=== PATIENT | female | born 1990 | race Caucasian/White ===

== ENCOUNTER 2018-06-24 08:48 | Emergency (ER) | payer BC ==
[2018-06-24] MEDS ORDERED: Alum Hydrox/Mag Hydrox/Simeth 30 ML, Lidocaine 2% 15 ML PO ONE ×2 (09:26)
--- NOTE | 2018-06-24 09:28 | EDM.PDOC ---
ED HPI GENERAL MEDICAL PROBLEM - General Chief Complaint: Abdominal Pain Stated Complaint: ABD PAIN Time Seen by Provider: 06/24/18 09:05 - History of Present Illness INITIAL COMMENTS - FREE TEXT/NARRATIVE: 28-year-old female presents emergency room with abdominal pain. This pain started in April. She was in the clinic at lab work done that she reports is unremarkable she had a CT done that was noncontributory on May 21. At this time she describes the pain is worse in the left upper quadrant but is present in the entire abdominal area. She has a history of endometriosis. She is not on any therapy for endometriosis. Every time she tries to eat or drink she developed some vomiting. Apparently she has an appointment with Dr. Hurtado on the of this month. Denies fevers or chills. The pain often wakes her up at night and sometimes associated with a burning sensation in her middle upper abdomen. 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, 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: hx of c-sections Psychiatric History: Reports: Depression Other Psychiatric History: depression 5-6years ago with suicide attempt - Past Surgical History GI Surgical History: Reports: Appendectomy Female Surgical History: Reports: Section Social & Family History - Tobacco Use Smoking Status *Q: Current Every Day Smoker Years of Tobacco use: 2 Packs/Tins Daily: 0.2 Second Hand Smoke Exposure: No - Caffeine Use Caffeine Use: Reports: Coffee - Alcohol Use Days Per Week of Alcohol Use: 2 Number of Drinks Per Day: 1 Total Drinks Per Week: 2 - Recreational Drug Use Recreational Drug Use: No ED ROS GENERAL - Review of Systems Review Of Systems: See Below Constitutional: Reports: No Symptoms HEENT: Reports: No Symptoms Respiratory: Reports: No Symptoms Cardiovascular: Reports: No Symptoms Endocrine: Reports: No Symptoms GI/Abdominal: Reports: Abdominal Pain, Nausea, Vomiting. Denies: Constipation, Diarrhea : Reports: No Symptoms Musculoskeletal: Reports: No Symptoms Skin: Reports: No Symptoms Neurological: Reports: No Symptoms ED EXAM, GI/ABD - Physical Exam Exam: See Below Exam Limited By: No Limitations General Appearance: Alert, No Apparent Distress Head: Atraumatic, Normocephalic Neck: Normal Inspection, Supple, Non-Tender, Full Range of Motion Respiratory/Chest: No Respiratory Distress, Lungs Clear, Normal Breath Sounds Cardiovascular: Regular Rate, Rhythm, No Edema, No Murmur GI/Abdominal Exam: Normal Bowel Sounds, Soft, Other (She has tenderness all over worse left upper quadrant left lower quadrant). No: Guarding, Rigid, Rebound Back Exam: Normal Inspection. No: CVA Tenderness (L), CVA Tenderness (R) Extremities: Normal Inspection, No Pedal Edema Neurological: Alert, Oriented, Normal Cognition Psychiatric: Anxious Skin Exam: Warm, Dry, Intact Course - Vital Signs Last Recorded V/S: Last Vital Signs Temp 36.3 C 06/24/18 09:00 Pulse 80 06/24/18 09:00 Resp 16 06/24/18 09:00 BP 108/68 06/24/18 09:00 Pulse Ox 100 06/24/18 09:00 - Orders/Labs/Meds Labs: Laboratory Tests 06/24/18 06/24/18 06/24/18 Range/Units 09:35 09:40 09:40 WBC 7.76 (3.98-10.04) K/mm3 RBC 4.66 (3.98-5.22) M/mm3 Hgb 15.2 (11.2-15.7) gm/L Hct 45.2 H (34.1-44.9) % MCV 97.0 H (79.4-94.8) fl MCH 32.6 H (25.6-32.2) pg MCHC 33.6 (32.2-35.5) g/dl RDW Std Deviation 49.7 H (36.4-46.3) fL Plt Count 305 (182-369) K/mm3 MPV 9.8 (9.4-12.3) fl Neutrophils % (Manual) 54 (40-60) % Band Neutrophils % 0 (0-10) % Lymphocytes % (Manual) 37 (20-40) % Atypical Lymphs % 0 % Monocytes % (Manual) 7 (2-10) % Eosinophils % (Manual) 2 (0.7-5.8) % Basophils % (Manual) 0 L (0.1-1.2) Platelet Estimate Adequate RBC Morph Comment Normal Sodium 142 (136-145) mEq/L Potassium 4.1 (3.5-5.1) mEq/L Chloride 106 (98-107) mEq/L Carbon Dioxide 27 (21-32) mEq/L Anion Gap 13.1 (5-15) BUN 12 (7-18) mg/dL Creatinine 0.8 (0.55-1.02) mg/dL Est Cr Clr Drug Dosing 92.53 mL/min Estimated GFR (MDRD) > 60 (>60) mL/min BUN/Creatinine Ratio 15.0 (14-18) Glucose 95 (74-106) mg/dL Calcium 9.4 (8.5-10.1) mg/dL Total Bilirubin 0.3 (0.2-1.0) mg/dL AST 12 L (15-37) U/L ALT 20 (14-59) U/L Alkaline Phosphatase 89 (46-116) U/L C-Reactive Protein < 0.2 (<1.0) mg/dL Total Protein 7.8 (6.4-8.2) g/dl Albumin 4.2 (3.4-5.0) g/dl Globulin 3.6 gm/dL Albumin/Globulin Ratio 1.2 (1-2) Lipase 123 (73-393) U/L Urine Color Yellow (Yellow) Urine Appearance Clear (Clear) Urine pH 7.0 (5.0-8.0) Ur Specific [place] 1.015 (1.005-1.030) Urine Protein Negative (Negative) Urine Glucose (UA) Negative (Negative) Urine Ketones Negative (Negative) Urine Occult Blood Negative (Negative) Urine Nitrite Negative (Negative) Urine Bilirubin Negative (Negative) Urine Urobilinogen 0.2 (0.2-1.0) Ur Leukocyte Esterase Negative (Negative) Urine RBC 0-5 (0-5) /hpf Urine WBC 0-5 (0-5) /hpf Ur Epithelial Cells 0-5 (0-5) /hpf Urine Bacteria Not seen (FEW) /hpf Urine Mucus Not seen (FEW) /hpf Urine HCG, Qual (NEGATIVE) 06/24/18 Range/Units Unknown WBC (3.98-10.04) K/mm3 RBC (3.98-5.22) M/mm3 Hgb (11.2-15.7) gm/L Hct (34.1-44.9) % MCV (79.4-94.8) fl MCH (25.6-32.2) pg MCHC (32.2-35.5) g/dl RDW Std Deviation (36.4-46.3) fL Plt Count (182-369) K/mm3 MPV (9.4-12.3) fl Neutrophils % (Manual) (40-60) % Band Neutrophils % (0-10) % Lymphocytes % (Manual) (20-40) % Atypical Lymphs % % Monocytes % (Manual) (2-10) % Eosinophils % (Manual) (0.7-5.8) % Basophils % (Manual) (0.1-1.2) Platelet Estimate RBC Morph Comment Sodium (136-145) mEq/L Potassium (3.5-5.1) mEq/L Chloride (98-107) mEq/L Carbon Dioxide (21-32) mEq/L Anion Gap (5-15) BUN (7-18) mg/dL Creatinine (0.55-1.02) mg/dL Est Cr Clr Drug Dosing mL/min Estimated GFR (MDRD) (>60) mL/min BUN/Creatinine Ratio (14-18) Glucose (74-106) mg/dL Calcium (8.5-10.1) mg/dL Total Bilirubin (0.2-1.0) mg/dL AST (15-37) U/L ALT (14-59) U/L Alkaline Phosphatase (46-116) U/L C-Reactive Protein (<1.0) mg/dL Total Protein (6.4-8.2) g/dl Albumin (3.4-5.0) g/dl Globulin gm/dL Albumin/Globulin Ratio (1-2) Lipase (73-393) U/L Urine Color (Yellow) Urine Appearance (Clear) Urine pH (5.0-8.0) Ur Specific [place] (1.005-1.030) Urine Protein (Negative) Urine Glucose (UA) (Negative) Urine Ketones (Negative) Urine Occult Blood (Negative) Urine Nitrite (Negative) Urine Bilirubin (Negative) Urine Urobilinogen (0.2-1.0) Ur Leukocyte Esterase (Negative) Urine RBC (0-5) /hpf Urine WBC (0-5) /hpf Ur Epithelial Cells (0-5) /hpf Urine Bacteria (FEW) /hpf Urine Mucus (FEW) /hpf Urine HCG, Qual Negative (NEGATIVE) Meds: Medications Discontinued Medications Generic Name Dose Route Start Last Admin Trade Name Freq PRN Reason Stop Dose Admin Al Hydroxide/Mg Hydroxide 30 0 ml 06/24/18 09:26 06/24/18 09:34 ml/ Lidocaine HCl 15 ml PO 06/24/18 09:27 45 ml ONETIME ONE Administration Lactated Ringer's 1,000 mls @ 999 mls/hr 06/24/18 09:32 06/24/18 09:51 Ringers, Lactated IV 06/24/18 10:32 999 mls/hr .BOLUS ONE Administration Ondansetron HCl 4 mg 06/24/18 09:32 06/24/18 09:49 Zofran IVPUSH 06/24/18 09:33 4 mg ONETIME ONE Administration - Re-Assessments/Exams Free Text/Narrative Re-Assessment/Exam: 06/24/18 09:25 Old records reviewed labs from May 17 unrevealing except for a C-reactive protein of 1.9 CT examination done on 05-26 show no acute abdominal pathology no suggestion of what is causing her discomfort. 06/24/18 12:02 Labs nondiagnostic. At this point the patient declines any opioid treatment she' ll continue with the Tylenol and Motrin. I did discuss her case with Dr. Hurtado who will see her next week in the clinic 10:00 in the morning on the . We did discuss checking another CT patient does not want to do this at this time which I think is reasonable. Did offer gallbladder ultrasound she like to hold off that she really believes this is her endometriosis acting up. Patient was given a GI cocktail here but did not seem to help. Departure - Departure Time of Disposition: 12:03 Disposition: Home, Self-Care 01 Clinical Impression: Abdominal pain of unknown etiology, History of endometriosis - Discharge Information Referrals: Angela Garcia MD [Primary Care Provider] - Forms: ED Department Discharge Additional Instructions: Return to the emergency room with any questions problems worsening symptoms. Continue using the Tylenol and Motrin as needed for discomfort. Push lots of fluids. Follow-up with Dr. Hurtado this coming at 10:00 in the morning.
[2018-06-24] MEDS ORDERED: Lactated Ringers 1,000 ML IV ONE (09:32)
[2018-06-24] MEDS ORDERED: Ondansetron 4 MG/2 ML SDV IVPUSH ONE (09:32)
[2018-06-24 12:22] VITALS: BP 115/73
== END 2018-06-24 12:20 | disposition home or self-care (01) ==
LOC: JD.ED 08:48
DX: N80.9 Endometriosis, unspecified (principal); F17.210 Nicotine dependence, cigarettes, uncomplicated; Z88.0 Allergy status to penicillin; Z88.2 Allergy status to sulfonamides
CPT/HCPCS: 36415; 80053; 81001; 81025; 83690; 85007; 85027; 86140; 96361; 96374; 99284; A9270; J2405; J7120

== ENCOUNTER 2018-07-22 07:01 | Inpatient (IN) | payer BC ==
[~2018-07-22 07:01] MED LIST: Lidocaine 1%/Sod Bicarbonate in NS 8.4% 1 ML Syringe IDERM PRN; Sodium Chloride 0.9% 10 ML Syringe FLUSH PRN
[2018-07-22] MEDS ORDERED: Bupivacaine 0.5% 30 ML SDV ONE (07:07)
[2018-07-22] MEDS ORDERED: Propofol 200 MG/20 ML SDV ONE (07:28)
[2018-07-22] MEDS ORDERED: fentaNYL 250 MCG/5 ML SDV ONE (07:28)
[2018-07-22] MEDS ORDERED: Midazolam 1 MG/ML 2 ML SDV ONE (07:28)
[2018-07-22] MEDS ORDERED: Rocuronium 50 MG/5 ML Vial ONE (07:28)
[2018-07-22] MEDS ORDERED: Gentamicin 350 MG in Dextrose 5% in Water 100 ML IV ONE ×2 (07:30)
[2018-07-22] MEDS: Lactated Ringers 1,000 ML IV SCH ×2 (07:35→10:38)
--- NOTE | 2018-07-22 07:47 | PCM.PREANE ---
Preanesthetic Assessment - Procedure Proposed Procedure: JOHN with BS - Anesthesia/Transfusion/Family Hx Anesthesia History: Prior Anesthesia Without Reaction Family History of Anesthesia Reaction: No Transfusion History: No Prior Transfusion(s) Intubation History: History of Difficulty Intubation - Review of Systems General: No Symptoms Pulmonary: Wheezing, Other (history last night of wheezing due to cold. has inhaler with ) Cardiovascular: No Symptoms Gastrointestinal: No Symptoms Neurological: No Symptoms Other: Reports: Depression, Anxiety - Physical Assessment NPO Status Date: 07/22/18 NPO Status Time: 22:00 Pulse: 72 O2 Sat by Pulse Oximetry: 100 Respiratory Rate: 16 Blood Pressure: 105/73 Temperature: 36.6 C Height: 1.65 m Weight: 69.598 kg ASA Class: 2 Mental Status: Alert & Oriented x3 Airway Class: Mallampati = 2 Dentition: Reports: Missing Tooth/Teeth (left lower ) Thyro-Mental Finger Breadths: 3 Mouth Opening Finger Breadths: 5 Lungs: Clear to Auscultation, Normal Respiratory Effort Cardiovascular: Regular Rate, Regular Rhythm - Lab Values: Laboratory Last Values WBC 6.16 K/mm3 (3.98-10.04) 07/21/18 08:38 RBC 4.43 M/mm3 (3.98-5.22) 07/21/18 08:38 Hgb 14.4 gm/L (11.2-15.7) 07/21/18 08:38 Hct 43.6 % (34.1-44.9) 07/21/18 08:38 MCV 98.4 fl (79.4-94.8) H 07/21/18 08:38 MCH 32.5 pg (25.6-32.2) H 07/21/18 08:38 MCHC 33.0 g/dl (32.2-35.5) 07/21/18 08:38 RDW Std Deviation 51.1 fL (36.4-46.3) H 07/21/18 08:38 Plt Count 296 K/mm3 (182-369) 07/21/18 08:38 MPV 9.8 fl (9.4-12.3) 07/21/18 08:38 Neut % (Auto) 60.6 % (34.0-71.1) 07/21/18 08:38 Lymph % (Auto) 25.8 % (19.3-51.7) 07/21/18 08:38 [place] % (Auto) 7.3 % (4.7-12.5) 07/21/18 08:38 Eos % (Auto) 5.0 (0.7-5.8) 07/21/18 08:38 Baso % (Auto) 1.3 % (0.1-1.2) H 07/21/18 08:38 Neut # (Auto) 3.73 K/mm3 (1.56-6.13) 07/21/18 08:38 Lymph # (Auto) 1.59 K/mm3 (1.18-3.74) 07/21/18 08:38 [place] # (Auto) 0.45 K/mm3 (0.24-0.36) H 07/21/18 08:38 Eos # (Auto) 0.31 K/mm3 (0.04-0.36) 07/21/18 08:38 Baso # (Auto) 0.08 K/mm3 (0.01-0.08) 07/21/18 08:38 Creatinine 0.8 mg/dL (0.55-1.02) 07/21/18 08:38 Est Cr Clr Drug Dosing TNP 07/21/18 08:38 Estimated GFR (MDRD) > 60 mL/min (>60) 07/21/18 08:38 Urine Color Yellow (Yellow) 07/21/18 08:38 Urine Appearance Clear (Clear) 07/21/18 08:38 Urine pH 7.0 (5.0-8.0) 07/21/18 08:38 Ur Specific [place] 1.010 (1.005-1.030) 07/21/18 08:38 Urine Protein Negative (Negative) 07/21/18 08:38 Urine Glucose (UA) Negative (Negative) 07/21/18 08:38 Urine Ketones Negative (Negative) 07/21/18 08:38 Urine Occult Blood Negative (Negative) 07/21/18 08:38 Urine Nitrite Negative (Negative) 07/21/18 08:38 Urine Bilirubin Negative (Negative) 07/21/18 08:38 Urine Urobilinogen 0.2 (0.2-1.0) 07/21/18 08:38 Ur Leukocyte Esterase Negative (Negative) 07/21/18 08:38 Urine HCG, Qual Negative (NEGATIVE) 07/21/18 08:38 Blood Type O POSITIVE 07/21/18 08:38 Gel Antibody Screen Negative 07/21/18 08:38 - Allergies Allergies/Adverse Reactions: Allergies Allergy/AdvReac Type Severity Reaction Status Date / Time cephalexin [Cephalexin] Allergy Hives Verified 07/21/18 12:20 Penicillins Allergy Hives Verified 07/21/18 12:20 Sulfa (Sulfonamide Allergy Hives Verified 07/21/18 12:20 Antibiotics) - Blood Blood Available: Yes - Anesthesia Plan Pre-Op Medication Ordered: None - Acknowledgements Anesthesia Type Planned: General Anesthesia Pt an Appropriate Candidate for the Planned Anesthesia: Yes Alternatives and Risks of Anesthesia Discussed w Pt/Guardian: Yes Pt/Guardian Understands and Agrees with Anesthesia Plan: Yes PreAnesthesia Questionnaire HEENT History: Reports: Impaired Vision Other HEENT History: wears eyeglasses Cardiovascular History: Reports: None Respiratory History: Reports: None Gastrointestinal History: Reports: Chronic Diarrhea Genitourinary History: Reports: UTI, 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, Para: 3 Other OB/BYN History: menorrhagia, dysmenorrhea, pelvic pain, yeast vaginitis, dyspareunia Musculoskeletal History: Reports: None Neurological History: Reports: None Psychiatric History: Reports: Anxiety, Depression Other Psychiatric History: depression 5-6years ago with suicide attempt Endocrine/Metabolic History: Reports: None Hematologic History: Reports: None Immunologic History: Reports: None Oncologic (Cancer) History: Reports: None Dermatologic History: Reports: None - Past Surgical History Head Surgeries/Procedures: Reports: None HEENT Surgical History: Reports: None Cardiovascular Surgical History: Reports: None Respiratory Surgical History: Reports: None GI Surgical History: Reports: Appendectomy Female Surgical History: Reports: Section Endocrine Surgical History: Reports: None Neurological Surgical History: Reports: None Musculoskeletal Surgical History: Reports: None Oncologic Surgical History: Reports: None Dermatological Surgical History: Reports: None - SUBSTANCE USE Smoking Status *Q: Former Smoker Recreational Drug Use History: No - HOME MEDS Home Medications: Home Meds Acetaminophen [Tylenol] 650 mg PO Q6H PRN #50 tablet 11/08/14 [Rx] Multivitamin [Multivitamins] 1 tab PO DAILY 06/24/18 [History] Albuterol Sulfate [Albuterol Sulfate Hfa] 1 - 2 puff INH Q4H PRN 07/21/18 [ History] - CURRENT (IN HOUSE) MEDS Current Meds: Current Medications Lactated Ringer's (Ringers, Lactated) 1,000 mls @ 125 mls/hr IV ASDIRECTED DELANEY Stop: 07/22/18 23:00 Clindamycin Phosphate 900 mg/ (Premix) 50 mls @ 100 mls/hr IV ONETIME ONE Stop: 07/22/18 08:29 Gentamicin Sulfate 350 mg/ (Dextrose/Water) 108.75 mls @ 200 mls/hr IV ONETIME ONE Stop: 07/22/18 08:02 Lidocaine/Sodium Bicarbonate (Buffered Lidocaine 1% In Ns 8.4%) 0.25 ml IDERM ONETIME PRN PRN Reason: Prior to IV Start Stop: 07/22/18 18:00 Sodium Chloride (Saline Flush) 10 ml FLUSH ASDIRECTED PRN PRN Reason: Keep Vein Open Stop: 07/22/18 18:00 Discontinued Medications Bupivacaine HCl (Marcaine 0.5%) Confirm Administered Dose 30 ml .ROUTE .STK-MED ONE Stop: 07/22/18 07:08 Fentanyl (Sublimaze) Confirm Administered Dose 250 mcg .ROUTE .STK-MED ONE Stop: 07/22/18 07:29 Gentamicin Sulfate (Gentamicin) 0 mg IV .Pharmacy to Dose [facility] Midazolam HCl (Versed 1 Mg/Ml) Confirm Administered Dose 2 mg .ROUTE .STK-MED ONE Stop: 07/22/18 07:29 Propofol (Diprivan 20 Ml) Confirm Administered Dose 600 mg .ROUTE .STK-MED ONE Stop: 07/22/18 07:29 Rocuronium [place] (Zemuron) Confirm Administered Dose 50 mg .ROUTE .STK-MED ONE Stop: 07/22/18 07:29
[2018-07-22] MEDS ORDERED: Gentamicin 40 MG/ML 2 ML Vial IV SCH (08:00)
[2018-07-22] MEDS ORDERED: Clindamycin Phosphate in D5W 900 MG in Premix Bag 1 BAG IV ONE ×2 (08:00)
[2018-07-22] MEDS ORDERED: Lidocaine 1% 2 ML ONE (08:05)
[2018-07-22] MEDS ORDERED: Ketamine 500 mg/10 ML MDV ONE (08:40)
[2018-07-22] MEDS ORDERED: HYDROmorphone 0.5 MG/0.5 ML Syringe ONE ×2 (08:41→08:50)
[2018-07-22] MEDS ORDERED: Lactated Ringers 1,000 ML ONE (09:03)
[2018-07-22] MEDS ORDERED: Neostigmine Methylsulfate 1 MG/ML 5 ML Syringe ONE (09:15)
[2018-07-22] MEDS ORDERED: Ketorolac 30 MG/ML SDV ONE (09:25)
--- NOTE | 2018-07-22 10:13 | PCM.OPNOTE ---
- General Post-Op/Procedure Note Date of Surgery/Procedure: 07/22/18 Operative Procedure(s): Total abdominal hysterectomy with bilateral salpingectomy, repair of bladder laceration Findings: Entered abdominal wall was found to be with moderate adhesions secondary to previous surgery. The uterus was normal size flow to his room unremarkable as were ovaries. Posterior cul-de-sac was unremarkable. Anterior cul-de-sac showed moderate to significant scarring in the area of the bladder onto the uterus. Ovaries were left in place per patient desire. Inadvertent entry into the bladder on the left side of the uterus in an area of dense adhesions. This was approximately 1 cm in length. Pre Op Diagnosis: 1. Menorrhagia. 2. Dysmenorrhea. 3. Dyspareunia Post-Op Diagnosis: 1. Menorrhagia. 2. Dysmenorrhea. 3. Dyspareunia. 4. Inadvertent entry into the bladder Anesthesia Technique: General ET Tube, Local Other Anesthesia Type: Marcaine 0.5%20 mL local Primary Surgeon: James Hurtado Secondary Surgeon: Yasmine Guy Anesthesia Provider: Loretta Rain Role of Agricultural Engineering Technician: Assistance, retraction, patient safety, quality of care Pathology: Uterus with bilateral fallopian tubes Fluid Replacement, Intraop: 1,800 Output, Urine Amount: 50 EBL in mLs: 400 Drain/Tube Comments:: Indwelling bladder catheter Complications: None Condition: Good Free Text/Narrative:: Surgery duration: 76 minutes procedure: After adequate consent was obtained, the patient was taken to the operating room. She was given 2 g of Ancef IV for infection prophylaxis. She had sequential compression stockings placed for DVT prophylaxis. She is administered general endotracheal anesthesia. After adequate administration of anesthesia patient was placed in a frog-leg position and was prepped vaginally and abdominally in the routine fashion. Mac catheter was placed. Patient's abdomen was then opened through her old Pfannenstiel skin incision scar. Entrance was made through the old Pfannenstiel incision scar. The incision was carried down through skin, subcutaneous and fascial layers. Severe and dense adhesions/scar tissue were apparent. Abdominal cavity was entered without problems. An Neville self-retaining retractor was placed. The uterus was elevated with a double-tooth tenaculum at the fundus. Using a Enseal vessel closure device the fallopian tube mesosalpinx was taken down on the patient's left side. Ovaries were conserved per patient desire. The ovarian ligament, round ligament, broad ligament were then taken down in a routine stepwise fashion using the Enseal system. Done on the right side. The cardinal ligaments and taken down on each side to the level of the to the cervix. The angles of the vagina were then crossclamped using Vince clamps 2 these pedicles were cut and were suture ligated with Vince stitch of #1 Vicryl. A [id number] suture was then placed in the mid incision to complete the closure. Hemostasis was confirmed at this time. Inadvertant entry into the bladder occurred with dissection of the bladder flap. After hysterectomy was done edges were identified and sutured with 3-0 Vicryl. Imbricating layer was then used using the same. Sterile milk was used to test the bladder and the laceration site appeared intact and secure. Stasis was confirmed at this time. The pelvis was irrigated with fluid aspirated. The one sponge been placed was removed. The abdominal was then closed. The fascia was closed with a running suture of #1 PDS from angle to angle. The subcutaneous area was closed with 2 layers of Monocryl suture first an interrupted layer and second a running layer reapproximating the skin edges closer to allow for better subcuticular suture closure. Subcuticular closure was then undertaken using 3-0 Monocryl suture on the Jordan needle. The incision was further asked made with Prineo mesh. The patient was awakened from general endotracheal anesthesia and was discharged from the operating room in good condition.
--- NOTE | 2018-07-22 10:13 | PCM.POSTAN ---
POST ANESTHESIA ASSESSMENT - MENTAL STATUS Mental Status: Disoriented - VITAL SIGNS Pulse Rate: 91 SaO2: 97 Resp Rate: 22 Blood Pressure: 105/65 Temperature: 36.2 C - RESPIRATORY Respiratory Status: Respiratory Rate WNL, Airway Patent, O2 Saturation Stable - CARDIOVASCULAR CV Status: Pulse Rate WNL, Blood Pressure Stable - GASTROINTESTINAL GI Status: No Symptoms - PAIN Pain Score: 0 - POST OP HYDRATION Hydration Status: Adequate & Stable
[2018-07-22] MEDS ORDERED: diphenhydrAMINE 50 MG/ML SDV IVPUSH PRN (10:15)
[2018-07-22] MEDS ORDERED: fentaNYL 100 MCG/2 ML SDV IVPUSH PRN (10:15)
[2018-07-22] MEDS ORDERED: Ondansetron 4 MG/2 ML SDV IVPUSH PRN ×2 (10:15→11:38)
[2018-07-22] MEDS: HYDROmorphone 0.5 MG/0.5 ML Syringe IVPUSH PRN ×2 (10:35→11:08)
[2018-07-22] MEDS ORDERED: HYDROmorphone 0.5 MG/0.5 ML Syringe IVPUSH PRN (11:38)
[2018-07-22] MEDS ORDERED: Lactated Ringers 1,000 ML IV SCH (11:38)
[2018-07-22] MEDS ORDERED: Promethazine 25 MG/ML SDV IM ONE (12:20)
[2018-07-22] MEDS ORDERED: Morphine 10 MG/ML SDV IM ONE (12:20)
[2018-07-22] MEDS: Phenazopyridine 95 MG Tab PO SCH ×2 (12:46→19:13)
[2018-07-22] MEDS: Acetaminophen/oxyCODONE 325-5 MG Tab PO PRN ×2 (16:03→20:16)
[2018-07-22] MEDS: Ibuprofen 600 MG Tab PO PRN ×2 (17:39→23:48)
[2018-07-22] MEDS: Docusate Sodium 100 MG Cap PO SCH (20:16)
--- NOTE | 2018-07-22 23:30 | PCM48HPAN ---
Post Anesthesia Note - EVALUATION WITHIN 48HRS OF ANESTHETIC Vital Signs in Normal Range: Yes Patient Participated in Evaluation: Yes Respiratory Function Stable: Yes Airway Patent: Yes Cardiovascular Function Stable: Yes Hydration Status Stable: Yes Pain Control Satisfactory: Yes Nausea and Vomiting Control Satisfactory: Yes Mental Status Recovered: Yes Pulse Rate: 80 Resp Rate: 14 Temperature: 36.7 C Blood Pressure: 111/74 - COMMENTS/OBSERVATIONS Free Text/Narrative:: RN states no issues of concern post anesthesia.
[2018-07-23] MEDS: Acetaminophen/oxyCODONE 325-5 MG Tab PO PRN ×3 (00:16→08:40)
[2018-07-23] MEDS: Ibuprofen 600 MG Tab PO PRN ×2 (05:49→13:06)
--- NOTE | 2018-07-23 07:28 | PCM.SURGPN ---
- General Info Date of Service: 07/23/18 POD#: 1 Functional Status: Reports: Pain Controlled, Tolerating Diet, Ambulating - Review of Systems General: Reports: No Symptoms Pulmonary: Reports: No Symptoms Cardiovascular: Reports: No Symptoms Gastrointestinal: Reports: Abdominal Pain (mostly located in incision ) Genitourinary: Reports: Other (slight discomfort with catheter in place ) Musculoskeletal: Reports: No Symptoms Neurological: Reports: No Symptoms - Patient Data Vitals - Most Recent: Last Vital Signs Temp 36.7 C 07/23/18 03:59 Pulse 74 07/23/18 03:59 Resp 14 07/23/18 03:59 BP 94/65 07/23/18 03:59 Pulse Ox 98 07/23/18 03:59 Weight - Most Recent: 69.598 kg I&O - Last 24 Hours: Intake & Output 07/22/18 07/23/18 07/23/18 22:59 06:59 14:59 Output Total 1425 500 Balance -1425 -500 Lab Results Last 24 Hrs: Laboratory Results - last 24 hr 07/23/18 Range/Units 05:45 WBC 12.41 H (3.98-10.04) K/mm3 RBC 3.57 L (3.98-5.22) M/mm3 Hgb 11.9 (11.2-15.7) gm/L Hct 35.6 (34.1-44.9) % MCV 99.7 H (79.4-94.8) fl MCH 33.3 H (25.6-32.2) pg MCHC 33.4 (32.2-35.5) g/dl RDW Std Deviation 50.8 H (36.4-46.3) fL Plt Count 261 (182-369) K/mm3 MPV 10.3 (9.4-12.3) fl Neut % (Auto) 71.9 H (34.0-71.1) % Lymph % (Auto) 20.7 (19.3-51.7) % [place] % (Auto) 6.8 (4.7-12.5) % Eos % (Auto) 0.2 L (0.7-5.8) Baso % (Auto) 0.2 (0.1-1.2) % Neut # (Auto) 8.90 H (1.56-6.13) K/mm3 Lymph # (Auto) 2.57 (1.18-3.74) K/mm3 [place] # (Auto) 0.85 H (0.24-0.36) K/mm3 Eos # (Auto) 0.03 L (0.04-0.36) K/mm3 Baso # (Auto) 0.03 (0.01-0.08) K/mm3 Med Orders - Current: Current Medications Docusate Sodium (Colace) 100 mg PO BID [facility] Last Admin: 07/22/18 20:16 Dose: 100 mg Hydromorphone HCl (Dilaudid) 0.2 mg IVPUSH Q2H PRN PRN Reason: Pain (severe 7-10) Lactated Ringer's (Ringers, Lactated) 1,000 mls @ 125 mls/hr IV ASDIRECTED [facility] Last Admin: 07/22/18 17:38 Dose: 125 mls/hr Ibuprofen (Motrin) 600 mg PO Q6H PRN PRN Reason: Pain (mild 1-3) Last Admin: 07/23/18 05:49 Dose: 600 mg Ondansetron HCl (Zofran) 4 mg IVPUSH Q4H PRN PRN Reason: Nausea/Vomiting Oxycodone/Acetaminophen (Percocet 325-5 Mg) 2 tab PO Q4H PRN PRN Reason: Pain (moderate 4-6) Last Admin: 07/23/18 04:21 Dose: 2 tab Phenazopyridine HCl (Urinary Pain Relief) 95 mg PO TIDPC [facility] Last Admin: 07/22/18 19:13 Dose: 95 mg Discontinued Medications Bupivacaine HCl (Marcaine 0.5%) Confirm Administered Dose 30 ml .ROUTE .STK-MED ONE Stop: 07/22/18 07:08 Last Admin: 07/22/18 08:25 Dose: 20 ml Diphenhydramine HCl (Benadryl) 12.5 mg IVPUSH Q6H PRN PRN Reason: pruritis Stop: 07/22/18 13:00 Fentanyl (Sublimaze) Confirm Administered Dose 250 mcg .ROUTE .STK-MED ONE Stop: 07/22/18 07:29 Fentanyl (Sublimaze) 50 mcg IVPUSH Q5M PRN PRN Reason: Pain Stop: 07/22/18 13:00 Gentamicin Sulfate (Gentamicin) 0 mg IV .Pharmacy to Dose [facility] Glycopyrrolate () Confirm Administered Dose 1 mg .ROUTE .STK-MED ONE Stop: 07/22/18 09:16 Hydromorphone HCl (Dilaudid) Confirm Administered Dose 0.5 mg .ROUTE .STK-MED ONE Stop: 07/22/18 08:42 Hydromorphone HCl (Dilaudid) Confirm Administered Dose 0.5 mg .ROUTE .STK-MED ONE Stop: 07/22/18 08:51 Hydromorphone HCl (Dilaudid) 0.5 mg IVPUSH Q1H PRN PRN Reason: Abdominal Pain Stop: 07/22/18 13:00 Last Admin: 07/22/18 11:08 Dose: 0.5 mg Lactated Ringer's (Ringers, Lactated) 1,000 mls @ 125 mls/hr IV ASDIRECTED [facility] Stop: 07/22/18 23:00 Last Admin: 07/22/18 10:38 Dose: 125 mls/hr Clindamycin Phosphate 900 mg/ (Premix) 50 mls @ 100 mls/hr IV ONETIME ONE Stop: 07/22/18 08:29 Last Admin: 07/22/18 07:55 Dose: 100 mls/hr Gentamicin Sulfate 350 mg/ (Dextrose/Water) 108.75 mls @ 200 mls/hr IV ONETIME ONE Stop: 07/22/18 08:02 Last Admin: 07/22/18 10:00 Dose: Not Given Lidocaine HCl (Xylocaine-Mpf 1%) Confirm Administered Dose 2 mls @ as directed .ROUTE .STK-MED ONE Stop: 07/22/18 08:06 Lactated Ringer's (Ringers, Lactated) Confirm Administered Dose 1,000 mls @ as directed .ROUTE .STK-MED ONE Stop: 07/22/18 09:04 Ketamine HCl (Ketalar) Confirm Administered Dose 500 mg .ROUTE .STK-MED ONE Stop: 07/22/18 08:41 Ketorolac Tromethamine (Toradol) Confirm Administered Dose 30 mg .ROUTE .STK- MED ONE Stop: 07/22/18 09:26 Lidocaine/Sodium Bicarbonate (Buffered Lidocaine 1% In Ns 8.4%) 0.25 ml IDERM ONETIME PRN PRN Reason: Prior to IV Start Stop: 07/22/18 18:00 Last Admin: 07/22/18 07:35 Dose: 0.25 ml Midazolam HCl (Versed 1 Mg/Ml) Confirm Administered Dose 2 mg .ROUTE .STK-MED ONE Stop: 07/22/18 07:29 Morphine Sulfate (Morphine) 10 mg IM ONETIME ONE Stop: 07/22/18 12:21 Last Admin: 07/22/18 12:47 Dose: 10 mg Neostigmine Methylsulfate (Neostigmine) Confirm Administered Dose 5 mg .ROUTE .STK-MED ONE Stop: 07/22/18 09:16 Ondansetron HCl (Zofran) 4 mg IVPUSH ONETIME PRN PRN Reason: Nausea/Vomiting Stop: 07/22/18 11:30 Promethazine HCl (Phenergan) 25 mg IM ONETIME ONE Stop: 07/22/18 12:21 Last Admin: 07/22/18 12:47 Dose: 25 mg Propofol (Diprivan 20 Ml) Confirm Administered Dose 600 mg .ROUTE .STK-MED ONE Stop: 07/22/18 07:29 Rocuronium [place] (Zemuron) Confirm Administered Dose 50 mg .ROUTE .STK-MED ONE Stop: 07/22/18 07:29 Sodium Chloride (Saline Flush) 10 ml FLUSH ASDIRECTED PRN PRN Reason: Keep Vein Open Stop: 07/22/18 18:00 - Exam Wound/Incisions: Healing Well, No Drainage General: Alert, Oriented, Cooperative Lungs: Clear to Auscultation, Normal Respiratory Effort Cardiovascular: Regular Rate, Regular Rhythm GI/Abdominal Exam: Soft, Tender (appropriate post op ) Extremities: Normal Inspection Skin: Warm, Dry, Intact Physical Findings Comment:: Catheter in place draining large amounts of orange tinged urine (patient using pyridium) - Problem List & Annotations (1) Dysmenorrhea SNOMED Code(s): 144776472 Code(s): N94.6 - DYSMENORRHEA, UNSPECIFIED Status: Acute Current Visit: Yes (2) S/P JOHN (total abdominal hysterectomy) SNOMED Code(s): 283606227, 209196331, 357489499, 350192441 Code(s): Z90.710 - ACQUIRED ABSENCE OF BOTH CERVIX AND UTERUS Status: Acute Current Visit: Yes - Problem List Review Problem List Initiated/Reviewed/Updated: Yes - My Orders Last 24 Hours: Active Orders 24 hr Category Date Time Status Ambulate [RC] ASDIRECTED Care 07/22/18 11:38 Active Antiembolic Devices [RC] PER UNIT ROUTINE Care 07/22/18 11:38 Active Urinary Catheter Assessment [RC] 03,09,15,21 Care 07/22/18 11:38 Active Vital Signs [RC] Q4HR Care 07/22/18 11:38 Active Regular Diet [DIET] Diet 07/22/18 Lunch Active Acetaminophen/oxyCODONE [Percocet 325-5 MG] Med 07/22/18 11:38 Active 2 tab PO Q4H PRN Docusate Sodium [Colace] Med 07/22/18 21:00 Active 100 mg PO BID HYDROmorphone [Dilaudid] Med 07/22/18 11:38 Active 0.2 mg IVPUSH Q2H PRN Ibuprofen [Motrin] Med 07/22/18 11:38 Active 600 mg PO Q6H PRN Lactated Ringers [Ringers, Lactated] 1,000 ml Med 07/22/18 11:38 Active IV ASDIRECTED Ondansetron [Zofran] Med 07/22/18 11:38 Active 4 mg IVPUSH Q4H PRN Phenazopyridine [Urinary Pain Relief] Med 07/22/18 13:00 Active 95 mg PO TIDPC Sequential Compression Device [OM.PC] Per Unit Routine Oth 07/22/18 11:38 Ordered Resuscitation Status Routine Resus Stat 07/22/18 10:03 Ordered Medication Orders Docusate Sodium (Colace) 100 mg PO BID [facility] Last Admin: 07/22/18 20:16 Dose: 100 mg Hydromorphone HCl (Dilaudid) 0.2 mg IVPUSH Q2H PRN PRN Reason: Pain (severe 7-10) Lactated Ringer's (Ringers, Lactated) 1,000 mls @ 125 mls/hr IV ASDIRECTED [facility] Last Admin: 07/22/18 17:38 Dose: 125 mls/hr Ibuprofen (Motrin) 600 mg PO Q6H PRN PRN Reason: Pain (mild 1-3) Last Admin: 07/23/18 05:49 Dose: 600 mg Admin: 07/22/18 23:48 Dose: 600 mg Admin: 07/22/18 17:39 Dose: 600 mg Ondansetron HCl (Zofran) 4 mg IVPUSH Q4H PRN PRN Reason: Nausea/Vomiting Oxycodone/Acetaminophen (Percocet 325-5 Mg) 2 tab PO Q4H PRN PRN Reason: Pain (moderate 4-6) Last Admin: 07/23/18 04:21 Dose: 2 tab Admin: 07/23/18 00:16 Dose: 2 tab Admin: 07/22/18 20:16 Dose: 2 tab Admin: 07/22/18 16:03 Dose: 2 tab Phenazopyridine HCl (Urinary Pain Relief) 95 mg PO TIDPC [facility] Last Admin: 07/22/18 19:13 Dose: 95 mg Admin: 07/22/18 12:46 Dose: 95 mg - Assessment Assessment (Free Text/Narrative):: 28 y/o woakman POD#1 from [facility] - Plan Plan (Free Text/Narrative):: Post op * Percocet and ibuprofen for pain * Routine cares * Desires discharge today * Catheter in place for incidental cystotomy. Will discharge with catheter in place and plan to return in ~1 week for removal. Rx for macrobid nightly while catheter in place
[2018-07-23] MEDS: Phenazopyridine 95 MG Tab PO SCH (08:39)
[2018-07-23] MEDS: Docusate Sodium 100 MG Cap PO SCH ×2 (08:42→12:07)
[2018-07-23 12:21] VITALS: BP 110/70
--- NOTE | 2018-07-23 13:29 | PCM.DCSUM1 ---
Discharge Summary - Discharge Data Discharge Date: 07/23/18 Discharge Disposition: Home, Self-Care 01 Condition: Good - Discharge Diagnosis/Problem(s) (1) Dysmenorrhea SNOMED Code(s): 675469205 ICD Code: N94.6 - DYSMENORRHEA, UNSPECIFIED Status: Acute (2) S/P JOHN (total abdominal hysterectomy) SNOMED Code(s): 985074715, 132500694, 176298691, 643580363 ICD Code: Z90.710 - ACQUIRED ABSENCE OF BOTH CERVIX AND UTERUS Status: Acute - Patient Summary/Data Operative Procedure(s) Performed: Total abdominal hysterectomy with bilateral salpingectomy, repair of bladder laceration Complications: None Consults: None Recommended Follow-up Testing/Procedures: Follow up in 1 week for post op check / catheter removal Hospital Course: 28 y/o woman with history of dysmenorrhea, heavy menstrual bleeding who presented for planned JOHN. Surgery notable for incidental cystotomy, but otherwise uncomplicated. Post op patient had catheter left in place. She did well and was meeting all goals by POD#1 and requested discharge home. This was felt reasonable. Catheter teaching done. She was discharged with plan to follow up in 1 week for catheter removal / post op check - Patient Instructions Diet: Regular Diet as Tolerated Activity: No Lifting Over 10 Pounds Activity, Other: Pelvic Rest for 6 weeks Driving: Do Not Drive (While taking narcotics ) Showering/Bathing: May Shower, No Tub Bathing/Swimming Wound/Incision Care: Keep Operative Site/Wound Site Clean and Dry Notify Provider of: Fever, Increased Pain, Swelling and Redness, Drainage, Nausea and/or Vomiting - Discharge Plan *PRESCRIPTION DRUG MONITORING PROGRAM REVIEWED*: No *COPY OF PRESCRIPTION DRUG MONITORING REPORT IN PATIENT EDE: No Prescriptions/Med Rec: Acetaminophen/oxyCODONE [Percocet 325-5 MG] 1 - 2 tab PO Q4H PRN #25 tablet PRN Reason: Pain (Moderate 4-6) Nitrofurantoin Alfalfa/Macrocryst [Nitrofurantoin Alfalfa-MCR] 100 mg PO BEDTIME #7 cap Home Medications: Home Meds Multivitamin [Multivitamins] 1 tab PO DAILY 06/24/18 [History] Albuterol Sulfate [Albuterol Sulfate Hfa] 1 - 2 puff INH Q4H PRN 07/21/18 [ History] Acetaminophen/oxyCODONE [Percocet 325-5 MG] 1 - 2 tab PO Q4H PRN #25 tablet 10/05 [Rx] Docusate Sodium [Colace] 100 mg PO BID cap 07/23/18 [Rx] Ibuprofen [Motrin] 600 mg PO Q6H PRN tablet 07/23/18 [Rx] Nitrofurantoin Alfalfa/Macrocryst [Nitrofurantoin Alfalfa-MCR] 100 mg PO BEDTIME #7 cap 07/23/18 [Rx] Patient Handouts: Abdominal Hysterectomy, Care After, [id number], Indwelling Urinary Catheter Care, Adult, [id number] Referrals: James Hurtado MD [Physician] - 07/28/18 (Dr. Hurtado) - Discharge Summary/Plan Comment DC Time >30 min.: No - Patient Data Vitals - Most Recent: Last Vital Signs Temp 36.4 C 07/23/18 08:49 Pulse 73 07/23/18 08:49 Resp 14 07/23/18 08:49 BP 110/70 07/23/18 08:49 Pulse Ox 96 07/23/18 08:49 Weight - Most Recent: 69.598 kg I&O - Last 24 hours: Intake & Output 07/22/18 07/23/18 07/23/18 22:59 06:59 14:59 Intake Total 1180 Output Total 1425 500 850 Balance -1425 -500 330 Lab Results - Last 24 hrs: Laboratory Results - last 24 hr 07/23/18 Range/Units 05:45 WBC 12.41 H (3.98-10.04) K/mm3 RBC 3.57 L (3.98-5.22) M/mm3 Hgb 11.9 (11.2-15.7) gm/L Hct 35.6 (34.1-44.9) % MCV 99.7 H (79.4-94.8) fl MCH 33.3 H (25.6-32.2) pg MCHC 33.4 (32.2-35.5) g/dl RDW Std Deviation 50.8 H (36.4-46.3) fL Plt Count 261 (182-369) K/mm3 MPV 10.3 (9.4-12.3) fl Neut % (Auto) 71.9 H (34.0-71.1) % Lymph % (Auto) 20.7 (19.3-51.7) % Al[place]alf[place] % (Auto) 6.8 (4.7-12.5) % Eos % (Auto) 0.2 L (0.7-5.8) Baso % (Auto) 0.2 (0.1-1.2) % Neut # (Auto) 8.90 H (1.56-6.13) K/mm3 Lymph # (Auto) 2.57 (1.18-3.74) K/mm3 [place]alf[place] # (Auto) 0.85 H (0.24-0.36) K/mm3 Eos # (Auto) 0.03 L (0.04-0.36) K/mm3 Baso # (Auto) 0.03 (0.01-0.08) K/mm3 Med Orders - Current: Current Medications Docusate Sodium (Colace) 100 mg PO BID [facility] Last Admin: 07/23/18 12:07 Dose: Not Given Hydromorphone HCl (Dilaudid) 0.2 mg IVPUSH Q2H PRN PRN Reason: Pain (severe 7-10) Lactated Ringer's (Ringers, Lactated) 1,000 mls @ 125 mls/hr IV ASDIRECTED [facility] Last Admin: 07/22/18 17:38 Dose: 125 mls/hr Ibuprofen (Motrin) 600 mg PO Q6H PRN PRN Reason: Pain (mild 1-3) Last Admin: 07/23/18 13:06 Dose: 600 mg Ondansetron HCl (Zofran) 4 mg IVPUSH Q4H PRN PRN Reason: Nausea/Vomiting Oxycodone/Acetaminophen (Percocet 325-5 Mg) 2 tab PO Q4H PRN PRN Reason: Pain (moderate 4-6) Last Admin: 07/23/18 08:40 Dose: 2 tab Phenazopyridine HCl (Urinary Pain Relief) 95 mg PO TIDPC [facility] Last Admin: 07/23/18 08:39 Dose: 95 mg Discontinued Medications Bupivacaine HCl (Marcaine 0.5%) Confirm Administered Dose 30 ml .ROUTE .STK-MED ONE Stop: 07/22/18 07:08 Last Admin: 07/22/18 08:25 Dose: 20 ml Diphenhydramine HCl (Benadryl) 12.5 mg IVPUSH Q6H PRN PRN Reason: pruritis Stop: 07/22/18 13:00 Fentanyl (Sublimaze) Confirm Administered Dose 250 mcg .ROUTE .STK-MED ONE Stop: 07/22/18 07:29 Fentanyl (Sublimaze) 50 mcg IVPUSH Q5M PRN PRN Reason: Pain Stop: 07/22/18 13:00 Gentamicin Sulfate (Gentamicin) 0 mg IV .Pharmacy to Dose [facility] Glycopyrrolate () Confirm Administered Dose 1 mg .ROUTE .STK-MED ONE Stop: 07/22/18 09:16 Hydromorphone HCl (Dilaudid) Confirm Administered Dose 0.5 mg .ROUTE .STK-MED ONE Stop: 07/22/18 08:42 Hydromorphone HCl (Dilaudid) Confirm Administered Dose 0.5 mg .ROUTE .STK-MED ONE Stop: 07/22/18 08:51 Hydromorphone HCl (Dilaudid) 0.5 mg IVPUSH Q1H PRN PRN Reason: Abdominal Pain Stop: 07/22/18 13:00 Last Admin: 07/22/18 11:08 Dose: 0.5 mg Lactated Ringer's (Ringers, Lactated) 1,000 mls @ 125 mls/hr IV ASDIRECTED [facility] Stop: 07/22/18 23:00 Last Admin: 07/22/18 10:38 Dose: 125 mls/hr Clindamycin Phosphate 900 mg/ (Premix) 50 mls @ 100 mls/hr IV ONETIME ONE Stop: 07/22/18 08:29 Last Admin: 07/22/18 07:55 Dose: 100 mls/hr Gentamicin Sulfate 350 mg/ (Dextrose/Water) 108.75 mls @ 200 mls/hr IV ONETIME ONE Stop: 07/22/18 08:02 Last Admin: 07/22/18 10:00 Dose: Not Given Lidocaine HCl (Xylocaine-Mpf 1%) Confirm Administered Dose 2 mls @ as directed .ROUTE .STK-MED ONE Stop: 07/22/18 08:06 Lactated Ringer's (Ringers, Lactated) Confirm Administered Dose 1,000 mls @ as directed .ROUTE .STK-MED ONE Stop: 07/22/18 09:04 Ketamine HCl (Ketalar) Confirm Administered Dose 500 mg .ROUTE .STK-MED ONE Stop: 07/22/18 08:41 Ketorolac Tromethamine (Toradol) Confirm Administered Dose 30 mg .ROUTE .STK- MED ONE Stop: 07/22/18 09:26 Lidocaine/Sodium Bicarbonate (Buffered Lidocaine 1% In Ns 8.4%) 0.25 ml IDERM ONETIME PRN PRN Reason: Prior to IV Start Stop: 07/22/18 18:00 Last Admin: 07/22/18 07:35 Dose: 0.25 ml Midazolam HCl (Versed 1 Mg/Ml) Confirm Administered Dose 2 mg .ROUTE .STK-MED ONE Stop: 07/22/18 07:29 Morphine Sulfate (Morphine) 10 mg IM ONETIME ONE Stop: 07/22/18 12:21 Last Admin: 07/22/18 12:47 Dose: 10 mg Neostigmine Methylsulfate (Neostigmine) Confirm Administered Dose 5 mg .ROUTE .STK-MED ONE Stop: 07/22/18 09:16 Ondansetron HCl (Zofran) 4 mg IVPUSH ONETIME PRN PRN Reason: Nausea/Vomiting Stop: 07/22/18 11:30 Promethazine HCl (Phenergan) 25 mg IM ONETIME ONE Stop: 07/22/18 12:21 Last Admin: 07/22/18 12:47 Dose: 25 mg Propofol (Diprivan 20 Ml) Confirm Administered Dose 600 mg .ROUTE .STK-MED ONE Stop: 07/22/18 07:29 Rocuronium [place] (Zemuron) Confirm Administered Dose 50 mg .ROUTE .STK-MED ONE Stop: 07/22/18 07:29 Sodium Chloride (Saline Flush) 10 ml FLUSH ASDIRECTED PRN PRN Reason: Keep Vein Open Stop: 07/22/18 18:00
== END 2018-07-23 13:00 | disposition home or self-care (01) | DRG 513 ==
LOC: JD.OB 07:01
PROVIDERS: ADMIT Obstetrics & Gynecology; ATTEND Obstetrics & Gynecology
PROC: 0UT90ZZ Resection of Uterus, Open Approach (ICD-10-PCS; principal; 2018-07-22)
PROC: 0UT70ZZ Resection of Bilateral Fallopian Tubes, Open Approach (ICD-10-PCS; 2018-07-22)
PROC: 0TQB0ZZ Repair Bladder, Open Approach (ICD-10-PCS; 2018-07-22)
DX: N92.0 Excessive and frequent menstruation with regular cycle (principal); N94.6 Dysmenorrhea, unspecified; N94.10 Unspecified dyspareunia; F32.9 Major depressive disorder, single episode, unspecified; H54.7 Unspecified visual loss; F41.9 Anxiety disorder, unspecified; Z88.2 Allergy status to sulfonamides; Z88.0 Allergy status to penicillin; Z90.49 Acquired absence of other specified parts of digestive tract; Z88.1 Allergy status to other antibiotic agents; Z87.891 Personal history of nicotine dependence; Z79.899 Other long term (current) drug therapy
CPT/HCPCS: 00840; 36415; 81003; 81025; 82565; 85025; 86850; 86900; 86901; A9270-GY; J1170; J1885; J2001; J2250; J2270; J2550; J2704; J2710; J3010; J3490; J7120

== ENCOUNTER 2023-07-16 09:28 | Emergency (ER) | payer BC, OTHER ==
[2023-07-16] MEDS: Morphine 4 MG/ML Syringe IVPUSH ONE (10:38)
[2023-07-16] MEDS: Famotidine 20 MG/2 ML SDV IVPUSH ONE (10:38)
[2023-07-16] MEDS: Sodium Chloride 0.9% 1,000 ML IV ONE (10:40)
[2023-07-16 10:41] LABS: BASOPHILS PERCENT AUTO 0.2 % (0.0-1.0); EOSINOPHILS PERCENT AUTO 0.1 % (0.0-6.0); HEMATOCRIT 43.7 % (37.0-47.0); HEMOGLOBIN 15.3 gm/dl (12.0-16.0); IMMATURE GRAN ABSOLUTE AUTO 0.06 K/mm3 (0.00-0.05); IMMATURE GRAN PERCENT AUTO 0.5 % (0.0-0.4); LYMPHOCYTES ABSOLUTE AUTO 0.5 K/mm3 (1.0-4.8); LYMPHOCYTES PERCENT AUTO 3.8 % (24.0-44.0); MEAN CORPUSCULAR VOLUME 105.8 fl (83.0-99.0); MEAN PLATELET VOLUME 9.7 fl (9.4-12.3); MONOCYTES ABSOLUTE AUTO 0.8 K/mm3 (0.0-0.8); MONOCYTES PERCENT AUTO 6.3 % (0.0-8.0); NEUTROPHILS ABSOLUTE AUTO 10.9 K/mm3 (1.8-7.7); NEUTROPHILS PERCENT AUTO 89.1 % (41.0-71.0); PLATELET COUNT,PLT 194 K/mm3 (150-400); RED BLOOD CELL COUNT 4.13 M/mm3 (4.10-5.30); WHITE BLOOD CELL COUNT,WBC 12.22 K/mm3 (3.9-11.3)
[2023-07-16 10:59] LABS: A/G RATIO 1.1 (1-2); ALBUMIN 3.9 g/dl (3.4-5.0); ANION GAP 14.8 (5-15); BILIRUBIN INDIRECT 1.1; BILIRUBIN TOTAL 2.2 mg/dL (0.2-1.0); BUN/CREATININE RATIO 7.5 (14-18); CALCIUM 9.2 mg/dL (8.5-10.1); CREATININE 0.8 mg/dL (0.55-1.02); EST CRCL DRUG DOSING (CG) 88.32 mL/min; PROTEIN TOTAL,TP 7.4 g/dl (6.4-8.2)
[2023-07-16 11:03] LABS: BILIRUBIN DIRECT 1.1 mg/dl (0.0-0.2); POTASSIUM,K 3.8 mEq/L (3.5-5.1)
[2023-07-16 11:31] LABS: APPEARANCE,URINE CLEAR (Clear); BILIRUBIN,URINE NEGATIVE (Negative); COLOR,URINE LIGHT YELLOW (Yellow); GLUCOSE,URINE NEGATIVE (Negative); KETONES,URINE 1+ (Negative); LEUKOCYTE ESTERASE,URINE NEGATIVE (Negative); NITRITE,URINE NEGATIVE (Negative); OCCULT BLOOD,URINE NEGATIVE (Negative); PROTEIN,URINE NEGATIVE (Negative); UROBILINOGEN,URINE 0.2 (0.2-1.0)
[2023-07-16 12:34] VITALS: BP 116/80; PULSE 99
== END 2023-07-16 12:00 | disposition home or self-care (01) ==
LOC: JD.ED 09:28
DX: K29.00 Acute gastritis without bleeding (principal); K52.9 Noninfective gastroenteritis and colitis, unspecified; Z88.0 Allergy status to penicillin; Z88.2 Allergy status to sulfonamides; Z88.1 Allergy status to other antibiotic agents; Z90.710 Acquired absence of both cervix and uterus
CPT/HCPCS: 36415; 76705; 80048; 80076; 80307; 81003; 83690; 85025; 96361; 96374; 96375; 99284; J2270; J3490; J7030